=== PATIENT | female | born 1950 | race Caucasian/White ===

== ENCOUNTER 2022-05-15 12:03 | Inpatient (IN) | payer MEDICARE, OTHER ==
[~2022-05-15] VITALS: Ht 167.6 cm; Wt 81.6 kg
[2022-05-15] MEDS: ASPIRIN 81MG TABLET PO SCH (13:18)
[2022-05-15 13:20] LABS: BASOPHILS % 0.4 % (0.0-2.0); EOSINOPHILS % 1.2 % (0.0-5.0); HEMATOCRIT. 40.2 % (36.0-48.0); HEMOGLOBIN. 13.7 g/dL (12.0-16.0); LYMPHOCYTES % 28.2 % (20.0-50.0); MEAN CORPUSCULAR HEMOGLOBIN 30.9 pg (28.0-32.0); MEAN CORPUSCULAR VOLUME 90.3 fL (81.0-99.0); MEAN PLATELET VOLUME 9.6 fl (7.4-10.4); MONOCYTES % 7.6 % (2.0-8.0); NEUTROPHILS % 62.6 % (40.0-76.0); PLATELET 163 x1000/uL (130-400); RED BLOOD CELL COUNT 4.45 mill/uL (4.2-5.4); RED CELL DISTRIBUTION WIDTH 13.7 % (11.6-14.6)
[2022-05-15 13:28] LABS: CHLORIDE 105 mEq/L (98-107)
[2022-05-15 15:18] LABS: CREATINE KINASE 75 IU/L (26-192)
[2022-05-15] MEDS ORDERED: REGADENOSON 0.4 MG/5 ML IV NR (15:45)
[2022-05-15 21:30] VITALS: BP 129/70
[2022-05-15 22:00] VITALS: BP 129/70
[2022-05-15] MEDS: ENALAPRIL 2.5MG TABLET PO SCH (23:01)
[2022-05-15] MEDS ORDERED: SIMV-43 PO (23:41)
[2022-05-15] MEDS ORDERED: ENAL5TAB21 PO (23:41)
[2022-05-16] VITALS: BP 121/69
[2022-05-16 00:26] LABS: CREATINE KINASE 92 IU/L (26-192)
[2022-05-16] MEDS ORDERED: DEXTROSE 50% WATER 50ML SYRINGE IV PRN (02:30)
[2022-05-16 04:00] VITALS: BP 129/71
[2022-05-16] MEDS: BLOOD SUGAR DIAGNOSTIC STRIP TEST SCH ×4 (06:46→20:41)
[2022-05-16 07:00] LABS: BASOPHILS % 0.7 % (0.0-2.0); EOSINOPHILS % 1.9 % (0.0-5.0); HEMATOCRIT. 39.5 % (36.0-48.0); HEMOGLOBIN. 13.5 g/dL (12.0-16.0); MEAN CORPUSCULAR HEMOGLOBIN 30.8 pg (28.0-32.0); MEAN CORPUSCULAR VOLUME 90.4 fL (81.0-99.0); MONOCYTES % 8.9 % (2.0-8.0); NEUTROPHILS % 57.5 % (40.0-76.0); PLATELET 167 x1000/uL (130-400); RED BLOOD CELL COUNT 4.37 mill/uL (4.2-5.4); RED CELL DISTRIBUTION WIDTH 13.3 % (11.6-14.6)
[2022-05-16 07:13] LABS: CHLORIDE 106 mEq/L (98-107)
[2022-05-16] MEDS ORDERED: REGADENOSON 0.4 MG/5 ML IV ONE (07:29)
[2022-05-16 07:30] LABS: CREATINE KINASE 59 IU/L (26-192); CREATINE KINASE MB FRACTION < 1.0 ng/mL (0.5-3.6)
[2022-05-16 07:40] VITALS: BP 109/55
[2022-05-16] MEDS: INSULIN LISPRO 100 UNITS/ML SUBCUT SCH ×4 (07:50→20:50)
[2022-05-16] MEDS: ENALAPRIL 2.5MG TABLET PO SCH ×2 (09:00→20:22)
[2022-05-16] MEDS ORDERED: MEDICATION NOT ON FORMULARY EA (Simvastatin 20 MG) PO SCH (09:00)
[2022-05-16] MEDS: ASPIRIN 81MG TABLET PO SCH ×2 (09:00→12:20)
[2022-05-16 11:21] VITALS: BP 110/60
[2022-05-16] MEDS ORDERED: ASPI-1497 MT (15:24)
[2022-05-16 16:00] VITALS: BP 103/64
[2022-05-16 17:23] LABS: CREATINE KINASE MB FRACTION < 1.0 ng/mL (0.5-3.6)
[2022-05-16] MEDS ORDERED: HYDROCODONE/ACETAMINOPHEN 5/325MG TABLET PO PRN (19:00)
[2022-05-16 20:19] VITALS: BP 100/52
[2022-05-16] MEDS ORDERED: ATORVASTATIN CALCIUM 10MG TABLET PO SCH (21:00)
[2022-05-16 22:48] LABS: CLARITY URINE CLEAR (CLEAR); COLOR URINE YELLOW (YELLOW); KETONES URINE NEGATIVE (NEGATIVE); LEUKOCYTE ESTERASE URINE TRACE (NEGATIVE); NITRITE URINE NEGATIVE (NEGATIVE); OCCULT BLOOD URINE 1+ (NEGATIVE); PH URINE 5.5 (4.5-8.0); PROTEIN URINE NEGATIVE (NEGATIVE); SPECIFIC GRAVITY URINE 1.008 (1.005-1.030); UROBILINOGEN URINE 0.2 E.U./dL (0.2-1.0)
[2022-05-17] MEDS: BLOOD SUGAR DIAGNOSTIC STRIP TEST SCH (06:47)
[2022-05-17] MEDS: INSULIN LISPRO 100 UNITS/ML SUBCUT SCH (07:50)
[2022-05-17 08:00] VITALS: BP 122/67
[2022-05-17] MEDS: ASPIRIN 81MG TABLET PO SCH (09:06)
[2022-05-17] MEDS: ENALAPRIL 2.5MG TABLET PO SCH (09:07)
[2022-05-17 12:00] VITALS: BP 116/71
[2022-05-17 12:13] VITALS: BP 125/68
== END 2022-05-17 17:22 | disposition home or self-care (01) | DRG 311 ==
LOC: ER 12:03 → 6WST 17:48 → ENRESERV 20:39
PROVIDERS: ADMIT Internal Medicine; ATTEND Internal Medicine
DX: I24.9 Acute ischemic heart disease, unspecified (principal); I10 Essential (primary) hypertension; E78.5 Hyperlipidemia, unspecified; R51.9 Headache, unspecified; R73.03 Prediabetes; F41.9 Anxiety disorder, unspecified; Z90.49 Acquired absence of other specified parts of digestive tract; Z90.710 Acquired absence of both cervix and uterus; Z79.899 Other long term (current) drug therapy
CPT/HCPCS: 36415; 71045; 78452; 80048; 80053; 80061; 81003; 82550; 82553; 82962; 83036; 83735; 83880; 84484; 85025; 93005; 93017; 93306; 99285; A9500; J2785